=== PATIENT | male | born 1980 | race Two or more races ===

== ENCOUNTER 2022-10-22 16:09 | Inpatient (IN) | payer BC ==
[2022-10-22 16:39] VITALS: BMI 30.7
[2022-10-22] MEDS ORDERED: ACETAMINOPHEN 1000 MG/100 ML BAG IVPB ONE (18:46)
[2022-10-22 18:50] LABS: EPI CELLS 1 /uL (0-25.1); HYALINE CASTS 0 /uL (0-3.1); PH,URINE 5.5 (5.0-8.0); URINE APPEARANCE CLEAR; URINE BACTERIA 2 /uL (0-1359); URINE BILIRUBIN NEGATIVE (NEGATIVE); URINE COLOR YELLOW; URINE GLUCOSE (UA) NEGATIVE (NEGATIVE); URINE KETONE NEGATIVE (NEGATIVE); URINE LEUK ESTERASE NEGATIVE (NEGATIVE); URINE NITRITE NEGATIVE (NEGATIVE); URINE PROTEIN TRACE (NEGATIVE); URINE RBC 14 /uL (0-23.9); URINE UROBILINOGEN 0.2 mg/dL (0.2-1.0); URINE WBC 3 /uL (0-25.8)
[2022-10-22 18:52] LABS: BASO % 0.6 % (0-2.0); EOS % 0.6 % (0-4.5); HEMATOCRIT 44.7 % (35.4-49); HEMOGLOBIN 15.1 GM/dL (11.7-16.9); LYMPH % 9.7 % (8-40); MCH 28.6 pg (25.7-33.7); MCHC 33.9 g/dl (32.0-35.9); MEAN CELL VOLUME 84.6 fl (80-96); MEAN PLT VOLUME 8.5 fl (7.5-11.1); MONO % 7.5 % (3.8-10.2); NEUT % 81.6 % (42.8-82.8); PLATELET COUNT 165 10^3/uL (134-434); RBC 5.29 M/mm3 (4.00-5.60); RDW 13.7 % (11.9-15.9)
[2022-10-22] MEDS ORDERED: ACETAMINOPHEN INJECTION 100 ML IVPB ONE ×2 (18:53→18:59)
[2022-10-22 19:23] LABS: POTASSIUM 4.3 mmol/L (3.5-5.1)
[2022-10-22 19:25] LABS: ALBUMIN 4.4 g/dl (3.4-5.0); CALCIUM 9.9 mg/dL (8.5-10.1)
[2022-10-22 19:30] LABS: BILIRUBIN,TOTAL 0.6 mg/dL (0.2-1); TOT PROT 8.2 g/dl (6.4-8.2)
[2022-10-22] MEDS ORDERED: morphine CARPU-JECT 2 MG/1 ML DISP.SYRIN IVPUSH ONE (22:29)
[2022-10-23] MEDS ORDERED: ACETAMINOPHEN 1000 MG/100 ML BAG IVPB PRN (04:17)
[2022-10-23 07:08] LABS: HEMATOCRIT 40.3 % (35.4-49); HEMOGLOBIN 13.5 GM/dL (11.7-16.9); MCH 28.8 pg (25.7-33.7); MCHC 33.4 g/dl (32.0-35.9); MEAN CELL VOLUME 86.3 fl (80-96); PLATELET COUNT 144 10^3/uL (134-434); RBC 4.67 M/mm3 (4.00-5.60); WHITE BLOOD COUNT 9.7 K/mm3 (4.0-10.0)
[2022-10-23 07:22] LABS: POTASSIUM 3.9 mmol/L (3.5-5.1)
[2022-10-23 07:27] LABS: BLOOD UREA NITROGEN 14.4 mg/dL (7-18); CALCIUM 9.1 mg/dL (8.5-10.1)
[2022-10-23 07:28] LABS: ALBUMIN 3.6 g/dl (3.4-5.0); MAGNESIUM 2.1 mg/dL (1.8-2.4)
[2022-10-23 07:30] LABS: PHOSPHOROUS 3.1 mg/dL (2.5-4.9)
[2022-10-23 07:32] LABS: BILIRUBIN,TOTAL 0.7 mg/dL (0.2-1)
[2022-10-23] MEDS ORDERED: CEFTRIAXONE 1 GM in DEXTROSE 5%-WATER - 50 ML IVPB SCH (10:00)
[2022-10-23] MEDS: SODIUM CHLORIDE 1,000 ML IV SCH (11:19)
[2022-10-23] MEDS: CEFTRIAXONE 1 GM in DEXTROSE 5%-WATER - 50 ML IVPB SCH (11:20)
[2022-10-23] MEDS: ENOXAPARIN NA (PORCINE) 40 MG/0.4 ML DISP.SYRIN SQ SCH (11:21)
[2022-10-23] MEDS: DOCUSATE SODIUM 100 MG CAPSULE (FP) PO PRN (14:36)
[2022-10-24] MEDS: SODIUM CHLORIDE 1,000 ML IV SCH (05:21)
[2022-10-24] MEDS: DOCUSATE SODIUM 100 MG CAPSULE (FP) PO PRN (05:21)
[2022-10-24] MEDS: ENOXAPARIN NA (PORCINE) 40 MG/0.4 ML DISP.SYRIN SQ SCH ×2 (09:57→10:04)
[2022-10-24] MEDS: CEFTRIAXONE 1 GM in DEXTROSE 5%-WATER - 50 ML IVPB SCH (09:58)
[2022-10-24] MEDS ORDERED: POLYETHYLENE GLYCOL (HEALTHYLAX) 3350 17 GM PACKET PO SCH (10:00)
[2022-10-24 10:13] VITALS: RESP 18
[2022-10-24 14:00] VITALS: BP 138/80; PULSE 73; TEMP 97.8
== END 2022-10-24 16:45 | disposition home or self-care (01) | DRG 392 ==
LOC: JER 16:09 → JERBED 22:57 → OBSVTOIN 10-23 02:06 → J7W 10-23 07:41
PROVIDERS: ADMIT Internal Medicine; ATTEND Internal Medicine
DX: K57.32 Diverticulitis of large intestine without perforation or abscess without bleeding (principal)
CPT/HCPCS: 36415; 74177-TC; 80053; 81003; 82150; 83605; 83690; 83735; 84100; 85025; 85027; 87086; 87328; 87329; 93005; 93010; 99285-25; G0378; Q9967